=== PATIENT | male | born 1960 | race Asian ===

== ENCOUNTER 2019-10-01 22:16 | Emergency (ER) | payer OTHER ==
[~2019-10-01] VITALS: Ht 180.3 cm; Wt 95.3 kg
[2019-10-01 22:16] VITALS: BP 114/92; TEMP 97.1
[2019-10-01 22:56] LABS: PLATELET COUNT 338 K/uL (142-355)
[2019-10-01 23:04] LABS: POTASSIUM 4.1 mmol/L (3.6-5.2)
[2019-10-02] MEDS ORDERED: AMLODIPINE BESYLATE PO (00:11)
[2019-10-02] MEDS ORDERED: BENZTROPINE2 MG PO (00:12)
[2019-10-02] MEDS ORDERED: BUSPIRONE15 MG PO (00:12)
[2019-10-02] MEDS ORDERED: LEXAPRO10 MG PO (00:13)
[2019-10-02] MEDS ORDERED: CARV12.5 PO (00:13)
[2019-10-02] MEDS ORDERED: FARXIGA10 MG PO (00:14)
[2019-10-02] MEDS ORDERED: GABA300C2 PO (00:15)
[2019-10-02] MEDS ORDERED: LORA0.5T17 PO (00:16)
[2019-10-02] MEDS ORDERED: HALO5TAB10 PO (00:16)
[2019-10-02] MEDS ORDERED: MELOXICAM7.5 MG PO (00:17)
[2019-10-02] MEDS ORDERED: PROVERA5 MG PO (00:17)
[2019-10-02] MEDS ORDERED: METF500T PO (00:18)
[2019-10-02] MEDS ORDERED: MIRALAX3350 N1 PO (00:19)
[2019-10-02] MEDS ORDERED: RANI150T78 PO (00:19)
[2019-10-02] MEDS ORDERED: RISP50IN IM (00:20)
[2019-10-02] MEDS ORDERED: TRAMADOL HCL100 MG PO (00:21)
[2019-10-02] MEDS ORDERED: THIA100T8 PO (00:21)
[2019-10-02] MEDS ORDERED: TYLENOL325 MG PO (00:22)
[2019-10-02] MEDS ORDERED: METACMUCIL PO (00:22)
[2019-10-02] MEDS ORDERED: SOOTHE XP IO (00:23)
[2019-10-02] MEDS ORDERED: [UNRECOGNIZED DRUG - OTHER] IO (00:23)
[2019-10-02] MEDS ORDERED: LANTUS100 UNIT/M SC (00:24)
[2019-10-02] MEDS ORDERED: BISACODYL5 M1 PO (00:24)
[2019-10-02] MEDS ORDERED: NOVOLOG100 UNIT/M SC (00:28)
== END 2019-10-01 23:35 | disposition other institution (70) ==
LOC: ED 22:17 → EDBD 22:17 → ED 23:35
PROVIDERS: Family Medicine
DX: F20.89 Other schizophrenia (principal); F31.89 Other bipolar disorder; N39.0 Urinary tract infection, site not specified; J18.9 Pneumonia, unspecified organism; Z04.6 Encounter for general psychiatric examination, requested by authority
CPT/HCPCS: 36415; 80053; 80307; 81000; 85027; 93005; 99283

== ENCOUNTER 2021-03-19 01:20 | Emergency (ER) | payer OTHER ==
[~2021-03-19] VITALS: Ht 180.3 cm; Wt 107.0 kg
[2021-03-19 01:20] VITALS: BP 156/103; TEMP 97.9
[~2021-03-19 01:20] MED LIST: AMLODIPINE BESYLATE PO; ARIPIPRAZOLE10 MG PO; BENZTROPINE2 MG PO; BISACODYL5 M1 PO; BUSP15TAB2 PO; BUSP5TAB2 PO; BUSPIRONE15 MG PO; CARV12.5 PO; CARV6.25 PO; CHOL100034 PO; CYAN10009 IM; ESCI10TA PO; FARXIGA10 MG PO; GABA300C2 PO; HALO5TAB10 PO; LANTUS100 UNIT/M SC; LEXAPRO10 MG PO; LORA0.5T17 PO; MEDR2.5T19 PO; MELOXICAM7.5 MG PO; METACMUCIL PO; METF500T PO; MIRALAX 17GM PAK PO; MIRALAX3350 N1 PO; NOVOLOG100 UNIT/M SC; OXCARBAZEPIN300 MG PO; PROVERA5 MG PO; RANI150T78 PO; RISP50IN IM; SOOTHE XP IO; THIA100T8 PO; TRAMADOL HCL100 MG PO; TYLENOL325 MG PO; [UNRECOGNIZED DRUG - OTHER] IO
[2021-03-19 02:12] LABS: PLATELET COUNT 234 K/uL (142-355)
[2021-03-19 02:17] LABS: POTASSIUM 3.4 mmol/L (3.6-5.2)
[2021-03-19] MEDS ORDERED: DIVA125C PO (03:28)
[2021-03-19] MEDS ORDERED: COSOPT1 ML OPTH (03:32)
[2021-03-19] MEDS ORDERED: NEURONTIN 100M100 MG PO (03:33)
[2021-03-19] MEDS ORDERED: GLIP10TA55 PO (03:34)
[2021-03-19] MEDS ORDERED: PANTOPRAZOLE 40MG TA PO (03:36)
[2021-03-19] MEDS ORDERED: RISP50IN IM (03:36)
[2021-03-19] MEDS ORDERED: ABILIFY PO (03:38)
[2021-03-19] MEDS ORDERED: METF100038 PO (03:38)
[2021-03-19] MEDS ORDERED: BENZ1TAB43 PO (03:39)
[2021-03-19] MEDS ORDERED: MELOXICAM7.5 MG PO (03:40)
[2021-03-19] MEDS ORDERED: LOSARTAN-HCTZ PO (03:40)
[2021-03-19] MEDS ORDERED: TRILEPTAL300 MG PO (03:41)
[2021-03-19] MEDS ORDERED: LORA0.5T17 PO (03:42)
[2021-03-19] MEDS ORDERED: [UNRECOGNIZED DRUG - CODE] INH (03:44)
== END 2021-03-19 02:57 | disposition other institution (70) ==
LOC: ED 01:37
PROVIDERS: Psychiatry & Neurology Psychiatry
DX: R46.89 Other symptoms and signs involving appearance and behavior (principal); F20.89 Other schizophrenia; Z11.52 Encounter for screening for COVID-19; Z04.6 Encounter for general psychiatric examination, requested by authority
CPT/HCPCS: 80053; 81000; 85027; 87635; 93005; 99283; U0003

== ENCOUNTER 2022-05-12 20:56 | Emergency (ER) | payer OTHER ==
[~2022-05-12] VITALS: Ht 180.3 cm; Wt 98.4 kg
[~2022-05-12 20:56] MED LIST changes: +ABILIFY 10MG TAB PO; +ABILIFY PO; +ACET-206 PO; +ALBU90AE13 INH; +ASPI81TA4 PO; +ASPIRIN81 M2 PO; +BENZ1TAB43 PO; +BLOOMIS59 PO; +CONGENTIN 1MG TAB PO; +COREG 6.25MG TAB PO; +COSOPT1 ML OPTH; +DIVA125C PO; +DIVALPROEX500 MG PO; +FLUP10TA3 PO; +FLUP25IN8 IM; +GLIP10TA55 PO; +GLIPIZIDE PO; +GLUCOTROL XL 5MG TAB PO; +Glipizide ER PO; +INSU300I SC; +INSUINJ20 SC; +LATA0.00 OPTH; +LATANOPROST0.005 % OPTH; +LOSA50TA PO; +LOSARTAN-HCTZ PO; +MAGNSUS68 PO; +METF100038 PO; +MIRALAX17 GM PO; +NEURONTIN 100M100 MG PO; +NICODERM CQ 21MG/HR TOP; +NORVASC 5MG TAB PO; +OLAN2.5T2 PO; +PANTOPRAZOLE 40MG TA PO; +PROAIR HFA INH; +SEROQUEL300 MG PO; +TRILEPTAL300 MG PO; +[UNRECOGNIZED DRUG - CODE] INH
[2022-05-12 21:43] LABS: PLATELET COUNT 396 K/uL (142-355)
[2022-05-12 21:52] LABS: POTASSIUM 4.6 mmol/L (3.6-5.2)
[2022-05-12 22:25] VITALS: BP 172/88; TEMP 98.1
[2022-05-13] MEDS ORDERED: AMLODIPINE BESYLATE PO (10:07)
[2022-05-13] MEDS ORDERED: LEVEMIR FL100 UNIT/M SC (10:08)
[2022-05-13] MEDS ORDERED: MELOXICAM7.5 MG PO (10:09)
[2022-05-13] MEDS ORDERED: PANTOPRAZOLE 40MG TA PO (10:10)
[2022-05-13] MEDS ORDERED: CARV12.5 PO (10:11)
[2022-05-13] MEDS ORDERED: GABA300C2 PO (10:12)
[2022-05-13] MEDS ORDERED: MEDR2.5T19 PO (10:14)
[2022-05-13] MEDS ORDERED: METF500T PO (10:15)
[2022-05-13] MEDS ORDERED: OXCARBAZEPIN300 MG PO (10:15)
[2022-05-13] MEDS ORDERED: ZYPREXA ZYDI5 MG PO (10:16)
[2022-05-13] MEDS ORDERED: BUSPIRONE15 MG PO (10:19)
[2022-05-13] MEDS ORDERED: QUETIAPINE200 MG PO (10:19)
[2022-05-13] MEDS ORDERED: TYLENOL325 MG PO (10:20)
[2022-05-13] MEDS ORDERED: MAGNSUS68 PO (10:22)
[2022-05-13] MEDS ORDERED: MIRALAX17 GM/SCOO PO (10:23)
== END 2022-05-12 22:25 | disposition still patient (30) ==
LOC: ED 20:56
PROVIDERS: Emergency Medicine Emergency Medical Services
DX: R46.89 Other symptoms and signs involving appearance and behavior (principal); F20.89 Other schizophrenia; Z11.52 Encounter for screening for COVID-19; Z04.6 Encounter for general psychiatric examination, requested by authority
CPT/HCPCS: 36415; 80053; 85027; 87635; 93005; 99284; U0003